=== PATIENT | female | born 2000 | race Caucasian/White ===

== ENCOUNTER 2018-03-01 17:25 | Emergency (ER) | payer MEDICAID ==
[~2018-03-01] VITALS: Ht 162.5 cm; Wt 95.3 kg
[~2018-03-01 17:25] MED LIST: BIRTH CONTROL1 EAC1 PO; CLARITIN10 MG PO; LEVOFLOXACIN500 MG PO; MOTRIN400 MG PO; MOTRIN600 MG PO; NKHM; VIBRAMYCIN100 MG PO; ZITHROMAX Z PA250 MG PO; ZOFRAN ODT4 MG SL
[2018-03-01 17:28] VITALS: BP 136/70
[2018-03-01 18:28] LABS: BILIRUBIN NEGATIVE (NEGATIVE); BLOOD NEGATIVE (NEGATIVE); CLARITY SL CLOUDY (CLEAR); COLOR YELLOW (YELLOW); GLUCOSE NEGATIVE (NEGATIVE); KETONE NEGATIVE (NEGATIVE); LEUKO ESTERASE 1+ (NEGATIVE); NITRITE NEGATIVE (NEGATIVE); UROBILINOGEN 0.2 E.U./dl (0.2-1.0)
[2018-03-01 18:37] LABS: BACTERIA 4+; EPITHELIAL CELLS 41-50
[2018-03-01] MEDS ORDERED: CEPHALEXIN500 M1 PO (19:08)
== END 2018-03-01 19:10 | disposition home or self-care (01) ==
LOC: ED 17:25
PROVIDERS: Nurse Practitioner
DX: O23.41 Unspecified infection of urinary tract in pregnancy, first trimester (principal); Z3A.10 10 weeks gestation of pregnancy; Z79.899 Other long term (current) drug therapy

== ENCOUNTER 2024-01-04 21:51 | Emergency (ER) | payer MEDICAID ==
[~2024-01-04] VITALS: Ht 160 cm; Wt 102.1 kg
[~2024-01-04 21:51] MED LIST changes: +CEPHALEXIN500 M1 PO
[2024-01-04 21:59] VITALS: BP 117/67
[2024-01-04] MEDS ORDERED: ACETAMINOPHEN 325 MG TAB PO ONE (22:05)
== END 2024-01-04 22:56 | disposition home or self-care (01) ==
LOC: ED 21:51
DX: J06.9 Acute upper respiratory infection, unspecified (principal); Z20.822 Contact with and (suspected) exposure to COVID-19; H92.03 Otalgia, bilateral

== ENCOUNTER → 2024-04-20 | Outpatient (CLI) | payer MEDICAID ==
[2024-04-21 09:13] LABS: HBSAG Negative (Negative); HEP B CORE AB, IGM Negative (Negative); HEPATITIS C ANTIBODY Non Reactive (Non Reactive)
== END | disposition home or self-care (01) ==
LOC: LAB 15:09
PROVIDERS: ATTEND Nurse Practitioner Women's Health
DX: Z72.51 High risk heterosexual behavior (principal)

== ENCOUNTER → 2025-06-14 | Outpatient (CLI) | payer OTHER | END | disposition home or self-care (01) | LOC: US 14:00 | PROVIDERS: ATTEND Nurse Practitioner Women's Health | DX: O36.8310 Maternal care for abnormalities of the fetal heart rate or rhythm, first trimester, not applicable or unspecified (principal); Z3A.11 11 weeks gestation of pregnancy ==